=== PATIENT | male | born 1985 | race Caucasian/White ===

== ENCOUNTER → 2017-01-15 | Outpatient (CLI) | payer BC ==
--- NOTE | 2017-01-15 10:59 | CR ---
EXAMINATION: Double contrast esophagram esophagram HISTORY: Dysphasia COMPARISON: None TECHNIQUE: A standard double contrast barium esophagram was performed. FINDINGS: The patient swallowed barium without difficulty. The esophagus is notably patulous extendi ng to the gastroesophageal junction. There is a beaked appearance distally. No clearance of barium i s noted from the esophagus into the stomach after several minutes. The mucosa otherwise appear radha l. Tertiary waves are noted. IMPRESSION: 1. Patulous dilated esophagus extending to the gastroesophageal junction consistent with achalasia.
== END ==
LOC: MW.DI 09:40
PROVIDERS: ATTEND Surgery
DX: R13.10 Dysphagia, unspecified (principal); K22.8 Other specified diseases of esophagus; K22.0 Achalasia of cardia
CPT/HCPCS: 74220; 74220-26

== ENCOUNTER 2017-04-19 17:19 | Emergency (ER) | payer BC ==
[2017-04-19] MEDS ORDERED: Ketorolac 30 MG/ML SDV IVPUSH ONE (17:47)
[2017-04-19] MEDS ORDERED: Sodium Chloride 0.9% 1,000 ML IV ONE ×2 (17:47→18:52)
--- NOTE | 2017-04-19 17:53 | EDM.PDOC ---
ED HPI GENERAL MEDICAL PROBLEM - General Chief Complaint: Back Pain or Injury Stated Complaint: BACK PAIN Time Seen by Provider: 04/19/17 17:40 Source of Information: Reports: Patient History Limitations: Reports: No Limitations - History of Present Illness INITIAL COMMENTS - FREE TEXT/NARRATIVE: History of present illness: [Patient is a 31-year-old male presents to the emergency room today with complaints of left flank pain. States he's had this left flank pain for approximately 1 week. Reports that the pain is constant but has episodes of increased pain which causes him to become lightheaded. 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 Denies any dysuria or difficulty starting history. Denies any past history of kidney stones. No recent trauma. No nausea, vomiting , diarrhea, or constipation.] Review of systems: As per history of present illness and below otherwise all systems reviewed and negative. Past medical history: As per history of present illness and as reviewed below otherwise noncontributory. Surgical history: As per history of present illness and as reviewed below otherwise noncontributory. Social history: No reported history of drug or alcohol abuse. Family history: As per history of present illness and as reviewed below otherwise noncontributory. Physical exam: HEENT: Atraumatic, normocephalic, pupils reactive, negative for conjunctival pallor or scleral icterus, mucous membranes moist, throat clear, neck supple, nontender, trachea midline. Lungs: Clear to auscultation, breath sounds equal bilaterally, chest nontender. Heart: S1S2, regular, negative for clicks, rubs, or JVD. Abdomen: Soft, nondistended, nontender. Negative for masses or hepatosplenomegaly. Left costovertebral tenderness to palpation. Pelvis: Stable nontender. Genitourinary: Deferred. Rectal: Deferred. Extremities: Atraumatic, negative for cords or calf pain. Neurovascular unremarkable. Neuro: Awake, alert, oriented. Cranial nerves II through XII unremarkable. Cerebellum unremarkable. Motor and sensory unremarkable throughout. Exam nonfocal. Diagnostics: [UA] Therapeutics: [IV Toradol and fluids] Impression: [Flank pain] Plan: [Follow up with PCP, Norflex, brief Thayne] Definitive disposition and diagnosis as appropriate pending reevaluation and review of above. Onset: Other (1 week) Duration: Week(s): Location: Reports: Other (Left flank) Left Middle Back Pain Score (Numeric/FACES): 7 - Related Data Allergies Allergy/AdvReac Type Severity Reaction Status Date / Time No Known Allergies Allergy Verified 04/19/17 17:23 Home Meds: Home Meds Omeprazole Magnesium [Prilosec Otc] 2 mg PO DAILY 04/19/17 [History] Orphenadrine [Norflex] 100 mg PO BID #28 tab.er 04/19/17 [Rx] Past Medical History - Past Health History Medical/Surgical History: Denies Medical/Surgical History Gastrointestinal History: Reports: GERD, Other (See Below) Other Gastrointestinal History: tissue damage on the esophagus Dermatologic History: Reports: None - Past Surgical History HEENT Surgical History: Reports: Tonsillectomy Musculoskeletal Surgical History: Reports: Arthroscopic Knee, Other (See Below) Social & Family History - Tobacco Use Smoking Status *Q: Current Every Day Smoker Years of Tobacco use: 19 Packs/Tins Daily: 1 - Recreational Drug Use Recreational Drug Use: No ED ROS GENERAL - Review of Systems Review Of Systems: ROS reveals no pertinent complaints other than HPI. (See history of present illness) ED EXAM, GENERAL - Physical Exam Exam: See Below (See dictation) Course - Vital Signs Last Recorded V/S: Last Vital Signs Temp 36.9 C 04/19/17 17:24 Pulse 57 L 04/19/17 20:09 Resp 14 04/19/17 20:09 BP 139/78 04/19/17 20:09 Pulse Ox 99 04/19/17 20:09 - Orders/Labs/Meds Orders: Active Orders 24 hr Category Date Time Status Abdomen Pelvis wo Cont [CT] Stat Exams 04/19/17 18:52 Ordered Labs: Laboratory Tests 04/19/17 Range/Units 17:35 Urine Color YELLOW Urine Appearance CLEAR Urine pH 7.5 (5.0-8.0) Ur Specific [place] 1.015 (1.001-1.035) Urine Protein NEGATIVE (NEGATIVE) mg/dL Urine Glucose (UA) NEGATIVE (NEGATIVE) mg/dL Urine Ketones NEGATIVE (NEGATIVE) mg/dL Urine Occult Blood NEGATIVE (NEGATIVE) Urine Nitrite NEGATIVE (NEGATIVE) Urine Bilirubin NEGATIVE (NEGATIVE) Urine Urobilinogen 0.2 (<2.0) EU/dL Ur Leukocyte Esterase NEGATIVE (NEGATIVE) Urine RBC 0-1 (0-2/HPF) Urine WBC 0-3 (0-5/HPF) Ur Epithelial Cells OCCASIONAL (NONE-FEW) Urine Bacteria RARE (NEGATIVE) Meds: Medications Discontinued Medications Generic Name Dose Route Start Last Admin Trade Name Guido PRN Reason Stop Dose Admin Sodium Chloride 1,000 mls @ 999 mls/hr 04/19/17 17:47 04/19/17 18:02 Normal Saline IV 04/19/17 18:47 999 mls/hr STAT ONE Administration Sodium Chloride 1,000 mls @ 999 mls/hr 04/19/17 18:52 04/19/17 19:16 Normal Saline IV 04/19/17 19:52 999 mls/hr STAT ONE Administration Ketorolac Tromethamine 30 mg 04/19/17 17:47 04/19/17 18:03 Toradol IVPUSH 04/19/17 17:48 30 mg ONETIME ONE Administration Departure - Departure Time of Disposition: 20:18 Disposition: Home, Self-Care 01 Condition: Good Clinical Impression: Back pain - Discharge Information Prescriptions: Orphenadrine [Norflex] 100 mg PO BID #28 tab.er Instructions: Muscle Strain, [id number] Forms: ED Department Discharge Additional Instructions: The following information is given to patients seen in the emergency department who are being discharged to home. This information is to outline your options for follow-up care. We provide all patients seen in our emergency department with a follow-up referral. The need for follow-up, as well as the timing and circumstances, are variable depending upon the specifics of your emergency department visit. If you don't have a primary care physician on staff, we will provide you with a referral. We always advise you to contact your personal physician following an emergency department visit to inform them of the circumstance of the visit and for follow-up with them and/or the need for any referrals to a consulting specialist. The emergency department will also refer you to a specialist when appropriate. This referral assures that you have the opportunity for follow-up care with a specialist. All of these measure are taken in an effort to provide you with optimal care, which includes your follow-up. Under all circumstances we always encourage you to contact your private physician who remains a resource for coordinating your care. When calling for follow-up care, please make the office aware that this follow-up is from your recent emergency room visit. If for any reason you are refused follow-up, please contact the [facility] Department at and asked to speak to the emergency department charge nurse. Take medication as directed Follow-up with PCP in 2-3 days Return to ED as needed as discussed - My Orders Last 24 Hours: My Active Orders 04/19/17 18:52 Abdomen Pelvis wo Cont [CT] Stat - Assessment/Plan Last 24 Hours: My Active Orders 04/19/17 18:52 Abdomen Pelvis wo Cont [CT] Stat
[2017-04-19 20:10] VITALS: BP 139/78
--- NOTE | 2017-04-22 11:23 | CT ---
EXAM DATE: 04/19/17 PATIENT'S AGE: 31 Patient: HERMINIA CACERES Facility: [place], [place] Site . Site : 1985 Study: CT Abdomen/Pelvis [id number]/[id number] 7:38:11 PM Ordering Physician: Doctor Champion Final Report: HISTORY: Abdominal pain. TECHNIQUE: Noncontrast CT abdomen and pelvis. COMPARISON: No prior. FINDINGS: There is no focal liver parenchymal abnormality. No biliary ductal dilatation. Gallbladder does not appear overly distended. Spleen size within normal limits. Adrenal glands normal. There is no focal pancreatic abnormality or peripancreatic inflammatory change. There is no hydronephrosis or obstructive urinary calculus. No renal mass. Urinary bladder is not optimally evaluated by CT but appears grossly unremarkable. - There is fluid within the distal esophagus which could relate to gastroesophageal reflux disease. There is no small bowel obstruction. No appendicitis. No diverticulitis. No abdominal fluid collection or free air. No abdominal aortic aneurysm. No technically enlarged lymph nodes. - Mild degenerative changes of the spine. No acute fracture. 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 - No acute lung infiltrate within the lung bases. IMPRESSION: 1. No specific identified cause of the patient`s abdominal pain. 2. No bowel obstruction, appendicitis or diverticulitis. 3. No hydronephrosis or obstructive urinary calculus. 4. Fluid within the distal esophagus may relate to gastroesophageal reflux disease. Dictated by Karthik Davis MD @ 04/19/2017 8:10:31 PM Dictated by: Karthik Davis MD @ 04/19/2017 20:10:39 (Electronic Signature) Report Signed by Proxy. [facility]ENTER[facility]rik
== END 2017-04-19 20:26 | disposition home or self-care (01) ==
LOC: MW.ED 17:19
DX: M54.6 Pain in thoracic spine (principal); K21.9 Gastro-esophageal reflux disease without esophagitis; F17.210 Nicotine dependence, cigarettes, uncomplicated; Z98.890 Other specified postprocedural states; Z79.899 Other long term (current) drug therapy
CPT/HCPCS: 74176; 81001; 96361; 96374; 99284; J1885; J7040; 99283